=== PATIENT | female | born 1995 | race Caucasian/White ===

== ENCOUNTER 2016-12-05 12:33 | Emergency (ER) | payer BC, MEDICAID ==
[2016-12-05 12:50] VITALS: BP 131/65
--- OUTSIDE RECORDS SUMMARY | 2016-12-05 16:03 | XMS REPORT | Continuity of Care Document ---
:1995 Author Organization [facility] ([facility]) [place] [address] Phone [phone] Care Team Providers Name Role Phone Norbert Amin Primary Care Provider [phone] Source Comments This disclosure is being made pursuant to the Care Everywhere program, applicable federal and state laws, and may not contain all informaitonavailable regarding this patient.[facility] ([facility]) Active Allergies and Adverse Reactions No Known Allergies Current Medications Prescription Sig. Disp. Refills Start Date End Date Status HYDROcodone-acetaminophen Take 1 Tab by Active 5-325 mg per tablet mouth every 4 hours as needed. Indications: PAIN multivitamin with Take 1 Tab by Active minerals 28-0.8 mg per mouth daily. tablet acetaminophen 325 mg Take 325 mg by Active tablet mouth every 4 hours as needed. Active Problems Not on file Social History Tobacco Use Types Packs/Day Years Used Date Former Smoker Quit: 05/30/2013 Comments:1-2 cigarettes/day during Alcohol Use Drinks/Week oz/Week Comments No 1st month until she found out she was Plan of Care Health Maintenance Due Date Last Done Comments Hepatitis B Vaccine (1 of 3 - Primary Series) 1993 HPV Vaccine (1 of 3 - Female/Unknown 3 Dose Series) 2004 Tdap Vaccine 2004 Cervical Cancer Screening 2011 Lipid Disorder Screening 2011 MMR Vaccine 2011 Td Vaccine 2011 Varicella Vaccine (1 of 2 - Adult - No Evidence of 2011 Immunity) Influenza Vaccine: Seasonal (#1) 02/08/2016 Results from Last 3 Months Not on file
== END 2016-12-05 14:17 | disposition left against medical advice (07) ==
LOC: ER 12:33
DX: Z53.21 Procedure and treatment not carried out due to patient leaving prior to being seen by health care provider (principal)